=== PATIENT | female | born 1995 | race Caucasian/White ===

== ENCOUNTER 2017-08-27 04:22 | Emergency (ER) | payer SELFPAY | END 2017-08-27 04:43 | disposition left against medical advice (07) | LOC: EMS 04:23 | DX: N93.9 Abnormal uterine and vaginal bleeding, unspecified (principal); F17.210 Nicotine dependence, cigarettes, uncomplicated; Z53.21 Procedure and treatment not carried out due to patient leaving prior to being seen by health care provider ==